=== PATIENT | female | born 1970 | race Caucasian/White ===

== ENCOUNTER 2016-09-01 10:58 | Emergency (ER) | payer OTHER ==
[2016-09-01] MEDS ORDERED: diphenhydrAMINE HCL 50 MG/ML VIAL IM ONE (11:05)
[2016-09-01] MEDS ORDERED: DEXAMETHASONE SOD PHOS 4 MG/ML VIAL IM ONE (11:05)
[2016-09-01] MEDS ORDERED: KETOROLAC TROMETHAMINE 60 MG/2 ML VIAL IM ONE (11:05)
[2016-09-01] MEDS ORDERED: PROMETHAZINE HCL 25 MG/ML VIAL IM ONE (11:05)
--- NOTE | 2016-09-01 11:26 | ED Physician Documentation ---
Headache - HISTORIAN Historian: patient - HPI Stated Complaint: "Migraine" Chief Complaint: Headache Onset: hours Timing: still present, persistent New Gradual Onset: No Exposure To: none Severity: severe Quality: similar to previous, pain Associated Symptoms: problems with vision, sensitivity to light, nausea Exacerbated By: light, noise, movement, position Further Comments: yes (46 year old female patient presents with complaints of migraine. States her PCP weaned off all her migraine medications including depakote and amitriptyline to "start over". Patient reports she is having blood work next week to recheck her iron level.) - ROS NEURO/PSYCH: denies: confusion, anxiety, depression EYES/ENT: denies: sore throat, difficulty swallowing, sinus pain, drainage, other CVS/RESP: none GI/: denies: abdominal pain, diarrhea, problems urinating, incontinence, other MS/SKIN/LYMPH: denies: muscle aches, back pain, rash, skin lesions, swollen glands, other - PAST HX Medical History: migraines Surgical History: other (BLT) Allergies/Adverse Reactions: Allergies Allergy/AdvReac Type Severity Reaction Status Date / Time No Known Allergies Allergy Verified 09/01/16 11:05 Home Medications: Ambulatory Orders Medication Instructions Recorded Promethazine HCl [Phenergan] 25 mg PO Q6H PRN #12 tablet 09/01/16 - SOCIAL HX Smoking History: non-smoker - Family HX Family History: none - VITAL SIGNS Vital Signs: Vital Signs Temp Pulse Resp BP Pulse Ox 74 18 136/86 99 09/01/16 11:30 09/01/16 11:30 09/01/16 11:30 09/01/16 11:30 - REVIEWED ASSESSMENTS Nursing Assessment Reviewed: Yes Vitals Reviewed: Yes ED Results Lab/Radiology - Orders Orders: ED Orders Category Date Time Status Dexamethasone Sod Phosphate [Decadron] Med 09/01/16 11:05 Discontinued 4 mg IM NOW ONE Ketorolac Tromethamine [Toradol] Med 09/01/16 11:05 Discontinued 60 mg IM NOW ONE Promethazine HCl [Phenergan] Med 09/01/16 11:05 Discontinued 25 mg IM NOW ONE diphenhydrAMINE HCL [Benadryl] Med 09/01/16 11:05 Discontinued 25 mg IM NOW ONE Headache Physical Exam - EXAM General Appearance: moderate distress, other (photophobia) EENT: no facial swelling, PERRL. No: pain over sinuses Neck: normal inspection Respiratory: no resp distress, chest non-tender, breath sounds normal CVS: reg. rate & rhythm, heart sounds nml Abdomen: non-tender, no organomegaly, nml bowel sounds, no distention Skin: no rash, pallor, warm, nml palp., dry Extremitites: non-tender, normal range of motion, no evidence of injury, no edema, J, PIGMENT WEIGHER - NEURO/PSYCH Higher Functions: alert, oriented x3, nml speech, mood/affect nml Cranial: no evidence of acute CVA. denies: facial droop Cerebellar: nml as tested, nml gait Sensorimotor: motor nml, sensation nml Discharge Clincal Impression: Migraine Qualifiers: Migraine type: without aura Status migrainosus presence: without status migrainosus Intractability: intractable Qualified Code(s): G43.019 - Migraine without aura, intractable, without status migrainosus Prescriptions: Promethazine HCl [Phenergan] 25 mg PO Q6H PRN #12 tablet PRN Reason: Nausea / Vomiting Referrals: Salima Espinoza MD [Primary Care Provider] - 2 Days Home Medications: Ambulatory Orders Promethazine HCl [Phenergan] 25 mg PO Q6H PRN #12 tablet 09/01/16 Condition: Stable Disposition: HOME, SELF-CARE Decision to Admit: NO Decision Time: 11:25
[2016-09-01 11:32] VITALS: BP 136/86
== END 2016-09-01 11:30 | disposition home or self-care (01) ==
LOC: ED 10:58
DX: G43.019 Migraine without aura, intractable, without status migrainosus (principal)
CPT/HCPCS: J1100; J1200; J1885; J2550; 96372; 99283

== ENCOUNTER 2017-01-12 08:06 | Emergency (ER) | payer OTHER ==
[2017-01-12 08:25] VITALS: BP 120/71
[2017-01-12] MEDS: ORPHENADRINE CITRATE 60 MG/2ML IM ONE (08:37)
--- NOTE | 2017-01-12 08:49 | ED Physician Documentation ---
Neck Injury/Pain - HISTORIAN Historian: patient - HPI Stated Complaint: Neck/Back Pain Chief Complaint: Neck Pain Additional Information: spontaneous onset upper rt neck pain and spasm yesterday-persists today. pt has taken intermittent ibu tramadol which she has for chronic lo back opain. she has not apparently taken this med as fully directed Onset: yesterday Duration: continues in ED, worse Recent Injury: No Context: other (no known-appears spontaneous) Other Injuries: neck Severity: moderate Quality: burning, dull, similar- prior back pain Associated Symptoms: headache (pain occ 'shoots to behind rt eye but not like migraine). denies: fever, chills, sweating Exacerbated By: movement of trunk, movement of neck Relieved By: other (heat pad) - ROS NEURO/PSYCH: denies: difficulty with speech, anxiety, depression EYES/ENT: denies: problems with vision CVS/RESP: none CONST: no problems GI/: denies: nausea, vomiting - PAST HX Past History: compression fracture(s) (l3 w/disc porotrusion following lifting at work-hs meds and getting therapy----she also has int ) Surgeries/Procedures: other (btl) Allergies/Adverse Reactions: Allergies Allergy/AdvReac Type Severity Reaction Status Date / Time No Known Allergies Allergy Verified 01/12/17 08:25 Home Medications: Ambulatory Orders Medication Instructions Recorded Amoxicillin/Potassium Clav 875 each PO BID 01/12/17 [Augmentin 875Mg/125Mg] Celecoxib [Celebrex] 200 mg PO QDAY 01/12/17 Orphenadrine Citrate [Norflex] 100 mg PO BID PRN #25 tab 01/12/17 traMADol HCL [Ultram] 50 - 100 mg PO Q6H 01/12/17 - SOCIAL HX Smoking History: non-smoker Alcohol Use: none Drug Use: none - FAMILY HX Family History: no significant history - VITAL SIGNS Vital Signs: Vital Signs Temp Pulse Resp BP Pulse Ox 98.0 F 69 16 120/71 95 01/12/17 08:18 01/12/17 08:18 01/12/17 08:18 01/12/17 08:18 01/12/17 08:18 - REVIEWED ASSESSMENT Nursing Assessment Reviewed: Yes Vitals Reviewed: Yes ED Results Lab/Radiology - Orders Orders: ED Orders Category Date Time Status Orphenadrine Citrate [Norflex] Med 01/12/17 08:30 Discontinued 60 mg IM NOW ONE Neck Injury/Pain - Physical Exam General Appearance: mild distress EENT: nml ENT inspection Neck: other (palp pain spasm upper rt area A/O AND C3) Back: other (chron ic) Respiratory: chest non-tender, breath sounds nml CVS: heart sounds nml Abdomen: non-tender Skin: warm/dry, normal color. No: cyanosis, diaphoresis, jaundice Extremities: non-tender, normal range of motion Neuro/Psych: oriented x3, sensation nml, motor nml, mood/affect nml Discharge Clincal Impression: Wry neck, hx chronic lo back pain Prescriptions: Orphenadrine Citrate [Norflex] 100 mg PO BID PRN #25 tab PRN Reason: Spasms Referrals: Primary Doctor,No [Primary Care Provider] - 2 Days Home Medications: Ambulatory Orders Amoxicillin/Potassium Clav [Augmentin 875Mg/125Mg] 875 each PO BID 01/12/17 Celecoxib [Celebrex] 200 mg PO QDAY 01/12/17 Orphenadrine Citrate [Norflex] 100 mg PO BID PRN #25 tab 01/12/17 traMADol HCL [Ultram] 50 - 100 mg PO Q6H 01/12/17 Comments: cpt plus meds plus HMP QID Condition: Good Disposition: 01 HOME, SELF-CARE Decision to Admit: NO Decision Time: 08:49
== END 2017-01-12 08:47 | disposition home or self-care (01) ==
LOC: ED 08:06
DX: M43.6 Torticollis (principal); G89.29 Other chronic pain; M54.9 Dorsalgia, unspecified
CPT/HCPCS: 96372; 99283; J2360

== ENCOUNTER 2018-06-23 16:41 | Outpatient (CLI) | payer OTHER ==
[2018-06-23 17:20] LABS: eGFR (Non-African) > 60
[2018-06-23 17:22] LABS: BASOPHILS % 0.3 (0.0-1.5); EOSINOPHILS % 1.2 % (0.0-6.8); MEAN CORPUSCULAR HEMOGLOBIN 21.9 pg (28.0-34.0); NEUTROPHILS # 5.9 # k/uL (1.4-7.7)
--- NOTE | 2018-06-23 17:25 | Diagnostic Imaging Report ---
Report Submission Date: Jun 23, 2018 5:22:53 PM ONLINE MEDIA BUYER Patient Study Name: AMY SPIVEY Date: Jun 23, 2018 4:50:07 PM ONLINE MEDIA BUYER Modality Type: DX Gender: F Description: CHEST : 72 Institution: [facility] Physician: HASMUKH SAVAGE 2 views of the chest History: 48/F CXR - PT STATES DIFFICULTY BREATHING x3 WKS, NON SMOKER. PT DENIES CHANCES OF AND WAS SHIELDED no comparison studies Heart is normal in size. There is no focal consolidation, pleural effusion or pneumothorax. Minimal left basilar atelectasis No acute osseous pathology Impression: No focal consolidation or pleural effusion. Minimal left basilar atelectasis. Electronically signed on Jun 23, 2018 5:22:53 PM ONLINE MEDIA BUYER by: Dia RAMIREZ
== END 2018-06-23 16:42 ==
LOC: LAB 16:41
PROVIDERS: ATTEND Family Medicine
DX: R07.89 Other chest pain (principal); R06.00 Dyspnea, unspecified
CPT/HCPCS: 36415; 71046; 80053; 80061; 84484; 85025; 85379